=== PATIENT | female | born 1995 ===

== ENCOUNTER → 2024-12-04 16:36 | Outpatient (REF) | payer OTHER, SELFPAY ==
[2024-12-05 12:10] LABS: Hepatitis B Surface Antigen Negative (Negative)
[2024-12-05 15:59] LABS: HIV Combo Negative (Negative)
[2024-12-06 17:50] LABS: Syphilis/T. pallidum Ab Reflex Negative (Negative)
[2024-12-06 19:36] LABS: Hepatitis B Surface Antibody Negative; Hepatitis C Antibody Negative (Negative)
== END ==
LOC: CLINIC 16:36
DX: Z12.4 Encounter for screening for malignant neoplasm of cervix (principal)
CPT/HCPCS: 36415; 86706; 86780; 86803; 87340; 87389

== ENCOUNTER → 2025-04-16 08:30 | Outpatient (REF) | payer OTHER, SELFPAY | LOC: CLINIC 08:30 | PROVIDERS: ATTENDING PHYSICIAN Student in an Organized Health Care Education/Training Program | DX: N87.9 Dysplasia of cervix uteri, unspecified (principal) | CPT/HCPCS: G0123 ==